=== PATIENT | female | born 1950 | race American Indian/Alaskan Native ===

== ENCOUNTER 2016-12-24 15:13 | Inpatient (IN) | payer MEDICARE ==
[2016-12-24 16:25] LABS: Basophils % (Auto) 0.7 % (0.0-1.8); Eosinophils % (Auto) 4.2 % (0.0-4.3); Hematocrit 35.4 % (30.3-42.9); Hemoglobin 11.3 gm/dl (10.1-14.3); Mean Corpuscular HGB Conc 32 % (30-34); Mean Corpuscular Hemoglobin 27 pg (28-32); Mean Corpuscular Volume 85 fl (79-97); Platelet Count 220 K/mm3 (140-440); Red Blood Count 4.19 M/mm3 (3.65-5.03); Red Cell Distribution Width 14.4 % (13.2-15.2); White Blood Count 6.2 K/mm3 (4.5-11.0)
--- NOTE | 2016-12-24 16:48 | Emergency Department Report ---
ED Shortness of Breath HPI - General Chief Complaint: Dyspnea/Respdistress Stated Complaint: COUGHING/FLUID ON LUNGS/SOB Time Seen by Provider: 12/24/16 16:30 Source: patient, family Mode of arrival: Ambulatory Limitations: No Limitations - History of Present Illness Initial Comments: Patient complains of wheezing and shortness of breath. She states that she has had occasional cough. After she does a nebulizer treatment she does see some low sputum but not prior. She's had no recent fever or chills. She is on Alogliptin, a medicine for diabetes, which she has MD Complaint: shortness of breath -: Gradual Severity: moderate Consistency: intermittent Improves With: nothing Worsens With: nothing Known History Of: COPD Context: recent URI Associated Symptoms: denies other symptoms - Related Data Home Medications Medication Instructions Recorded Confirmed Last Taken ALPRAZolam [Alprazolam] 0.5 mg PO DAILY 12/24/16 12/24/16 12/24/16 Alogliptin Benzoate [Alogliptin] 12.5 mg PO DAILY 12/24/16 12/24/16 12/24/16 Aspirin [Aspirin TAB] 325 mg PO DAILY 12/24/16 12/24/16 12/24/16 Carvedilol [Carvedilol] 3.125 mg PO DAILY 12/24/16 12/24/16 12/24/16 Carvedilol [Coreg] 3.125 mg PO DAILY 12/24/16 12/24/16 12/24/16 FLUoxetine [PROzac] 20 mg PO DAILY 12/24/16 12/24/16 12/24/16 Ferrous Gluconate [Fergon 325 MG 975 mg PO DAILY 12/24/16 12/24/16 12/24/16 tab] Furosemide [Lasix TAB] 40 mg PO DAILY 12/24/16 12/24/16 12/24/16 Insulin Glargine [Lantus VIAL] 25 units SUB-Q QHS 12/24/16 12/24/16 12/24/16 Lansoprazole [Prevacid] 15 mg PO DAILY 12/24/16 12/24/16 12/24/16 Levothyroxine [Synthroid] 100 mcg PO DAILY 12/24/16 12/24/16 12/24/16 Lisinopril [Lisinopril] 5 mg PO DAILY 12/24/16 12/24/16 12/24/16 Potassium Chloride [Klor-Con] 20 tab PO DAILY 12/24/16 12/24/16 12/24/16 Quetiapine Fumarate [Quetiapine 25 mg PO QHS 12/24/16 12/24/16 12/24/16 Fumarate] Simvastatin [Simvastatin] 40 mg PO DAILY 12/24/16 12/24/16 12/24/16 Simvastatin [Zocor TAB] 40 mg PO DAILY 12/24/16 12/24/16 12/24/16 Tramadol HCl [traMADol] 50 mg PO DAILY 12/24/16 12/24/16 12/24/16 glipiZIDE [Glipizide] 5 mg PO DAILY 12/24/16 12/24/16 12/24/16 Allergies Allergy/AdvReac Type Severity Reaction Status Date / Time No Known Allergies Allergy Unverified 04/28/14 15:10 ED Review of Systems ROS: Stated complaint: COUGHING/FLUID ON LUNGS/SOB Other details as noted in HPI Constitutional: denies: chills, fever Eyes: denies: eye pain, eye discharge, vision change ENT: denies: ear pain, throat pain Respiratory: cough, shortness of breath, wheezing Cardiovascular: denies: chest pain, palpitations Endocrine: no symptoms reported Gastrointestinal: denies: abdominal pain, nausea, diarrhea Genitourinary: denies: urgency, dysuria, discharge Musculoskeletal: denies: back pain, joint swelling, arthralgia Skin: denies: rash, lesions Neurological: denies: headache, weakness, paresthesias Psychiatric: denies: anxiety, depression Hematological/Lymphatic: denies: easy bleeding, easy bruising ED Past Medical Hx - Past Medical History Hx Hypertension: Yes Hx Congestive Heart Failure: Yes Hx Diabetes: Yes - Surgical History Hx Open Heart Surgery: Yes (Cardiac By-Pass surgery (1999), Aortic valve replacement (2005)) Additional Surgical History: Thyroidectomy - Social History Smoking Status: Never Smoker Substance Use Type: None - Medications Home Medications: Home Medications Medication Instructions Recorded Confirmed Last Taken Type ALPRAZolam [Alprazolam] 0.5 mg PO DAILY 12/24/16 12/24/16 12/24/16 History Alogliptin Benzoate [Alogliptin] 12.5 mg PO DAILY 12/24/16 12/24/16 12/24/16 History Aspirin [Aspirin TAB] 325 mg PO DAILY 12/24/16 12/24/16 12/24/16 History Carvedilol [Carvedilol] 3.125 mg PO DAILY 12/24/16 12/24/16 12/24/16 History Carvedilol [Coreg] 3.125 mg PO DAILY 12/24/16 12/24/16 12/24/16 History FLUoxetine [PROzac] 20 mg PO DAILY 12/24/16 12/24/16 12/24/16 History Ferrous Gluconate [Fergon 325 MG 975 mg PO DAILY 12/24/16 12/24/16 12/24/16 History tab] Furosemide [Lasix TAB] 40 mg PO DAILY 12/24/16 12/24/16 12/24/16 History Insulin Glargine [Lantus VIAL] 25 units SUB-Q QHS 12/24/16 12/24/16 12/24/16 History Lansoprazole [Prevacid] 15 mg PO DAILY 12/24/16 12/24/16 12/24/16 History Levothyroxine [Synthroid] 100 mcg PO DAILY 12/24/16 12/24/16 12/24/16 History Lisinopril [Lisinopril] 5 mg PO DAILY 12/24/16 12/24/16 12/24/16 History Potassium Chloride [Klor-Con] 20 tab PO DAILY 12/24/16 12/24/16 12/24/16 History Quetiapine Fumarate [Quetiapine 25 mg PO QHS 12/24/16 12/24/16 12/24/16 History Fumarate] Simvastatin [Simvastatin] 40 mg PO DAILY 12/24/16 12/24/16 12/24/16 History Simvastatin [Zocor TAB] 40 mg PO DAILY 12/24/16 12/24/16 12/24/16 History Tramadol HCl [traMADol] 50 mg PO DAILY 12/24/16 12/24/16 12/24/16 History glipiZIDE [Glipizide] 5 mg PO DAILY 12/24/16 12/24/16 12/24/16 History ED Physical Exam - General Limitations: No Limitations General appearance: alert, in no apparent distress - Head Head exam: Present: atraumatic, normocephalic - Eye Eye exam: Present: normal appearance - ENT ENT exam: Present: mucous membranes moist - Neck Neck exam: Present: normal inspection - Respiratory Respiratory exam: Present: wheezes. Absent: respiratory distress - Cardiovascular Cardiovascular Exam: Present: regular rate, normal rhythm. Absent: systolic murmur, diastolic murmur, rubs, gallop - GI/Abdominal GI/Abdominal exam: Present: soft, normal bowel sounds. Absent: distended, tenderness, guarding, rebound, rigid, organomegaly, mass - Extremities Exam Extremities exam: Present: normal inspection. Absent: tenderness, pedal edema, joint swelling, calf tenderness - Back Exam Back exam: Present: normal inspection. Absent: CVA tenderness (R), CVA tenderness (L) - Neurological Exam Neurological exam: Present: alert, oriented X3, CN II-XII intact. Absent: motor sensory deficit - Psychiatric Psychiatric exam: Present: normal affect, normal mood - Skin Skin exam: Present: warm, dry, intact, normal color. Absent: rash ED Course Vital Signs 12/24/16 12/24/16 12/24/16 15:21 17:03 17:21 Temperature 98.9 F Pulse Rate 96 H Pulse Rate [ 87 84 Posterior Bilateral Throughout] Respiratory 18 Rate Respiratory 18 18 Rate [Posterior Bilateral Throughout] Blood Pressure 123/66 Blood Pressure [Left] O2 Sat by Pulse 96 Oximetry 12/24/16 12/24/16 17:46 17:48 Temperature 98.5 F Pulse Rate 85 Pulse Rate [ Posterior Bilateral Throughout] Respiratory 16 16 Rate Respiratory Rate [Posterior Bilateral Throughout] Blood Pressure Blood Pressure 101/61 [Left] O2 Sat by Pulse 96 96 Oximetry - Reevaluation(s) Reevaluation #1: Patient was found to have mild hyper K, and increased anion gap. She did improve with breathing treatments. I have ordered an extended workup her anion gap acidosis. Patient was referred to the hospitalist, Dr. Gottlieb, for further evaluation. 12/24/16 19:08 12/24/16 19:09 ED Medical Decision Making - Lab Data Result diagrams: 12/24/16 15:41 12/24/16 15:41 Laboratory Results - last 24 hr 12/24/16 15:41 WBC 6.2 RBC 4.19 Hgb 11.3 Hct 35.4 MCV 85 MCH 27 L MCHC 32 RDW 14.4 Plt Count 220 Lymph % (Auto) 15.4 [place] % (Auto) 8.2 H Eos % (Auto) 4.2 Baso % (Auto) 0.7 Lymph # 0.9 L [place] # 0.5 Eos # 0.3 Baso # 0.0 Seg Neutrophils % 71.5 H Seg Neutrophils # 4.4 Laboratory Results - last 24 hr 12/24/16 12/24/16 15:41 15:41 WBC 6.2 RBC 4.19 Hgb 11.3 Hct 35.4 MCV 85 MCH 27 L MCHC 32 RDW 14.4 Plt Count 220 Lymph % (Auto) 15.4 [place] % (Auto) 8.2 H Eos % (Auto) 4.2 Baso % (Auto) 0.7 Lymph # 0.9 L [place] # 0.5 Eos # 0.3 Baso # 0.0 Seg Neutrophils % 71.5 H Seg Neutrophils # 4.4 Sodium 138 Potassium 5.1 H Chloride 101.6 Carbon Dioxide 18 L Anion Gap 24 BUN 26 H Creatinine 1.2 Estimated GFR 54 BUN/Creatinine Ratio 21.66 Glucose 219 H Calcium 9.2 Troponin T < 0.010 Laboratory Results - last 24 hr 12/24/16 12/24/16 15:41 15:41 WBC 6.2 RBC 4.19 Hgb 11.3 Hct 35.4 MCV 85 MCH 27 L MCHC 32 RDW 14.4 Plt Count 220 Lymph % (Auto) 15.4 [place] % (Auto) 8.2 H Eos % (Auto) 4.2 Baso % (Auto) 0.7 Lymph # 0.9 L [place] # 0.5 Eos # 0.3 Baso # 0.0 Seg Neutrophils % 71.5 H Seg Neutrophils # 4.4 Sodium 138 Potassium 5.1 H Chloride 101.6 Carbon Dioxide 18 L Anion Gap 24 BUN 26 H Creatinine 1.2 Estimated GFR 54 BUN/Creatinine Ratio 21.66 Glucose 219 H Calcium 9.2 Troponin T < 0.010 Laboratory Results - last 24 hr 12/24/16 12/24/16 15:41 15:41 WBC 6.2 RBC 4.19 Hgb 11.3 Hct 35.4 MCV 85 MCH 27 L MCHC 32 RDW 14.4 Plt Count 220 Lymph % (Auto) 15.4 [place] % (Auto) 8.2 H Eos % (Auto) 4.2 Baso % (Auto) 0.7 Lymph # 0.9 L [place] # 0.5 Eos # 0.3 Baso # 0.0 Seg Neutrophils % 71.5 H Seg Neutrophils # 4.4 Sodium 138 Potassium 5.1 H Chloride 101.6 Carbon Dioxide 18 L Anion Gap 24 BUN 26 H Creatinine 1.2 Estimated GFR 54 BUN/Creatinine Ratio 21.66 Glucose 219 H Calcium 9.2 Troponin T < 0.010 Laboratory Results - last 24 hr 12/24/16 12/24/16 15:41 15:41 WBC 6.2 RBC 4.19 Hgb 11.3 Hct 35.4 MCV 85 MCH 27 L MCHC 32 RDW 14.4 Plt Count 220 Lymph % (Auto) 15.4 [place] % (Auto) 8.2 H Eos % (Auto) 4.2 Baso % (Auto) 0.7 Lymph # 0.9 L [place] # 0.5 Eos # 0.3 Baso # 0.0 Seg Neutrophils % 71.5 H Seg Neutrophils # 4.4 Sodium 138 Potassium 5.1 H Chloride 101.6 Carbon Dioxide 18 L Anion Gap 24 BUN 26 H Creatinine 1.2 Estimated GFR 54 BUN/Creatinine Ratio 21.66 Glucose 219 H Calcium 9.2 Troponin T < 0.010 - EKG Data -: EKG Interpreted by Me EKG shows normal: sinus rhythm, axis, intervals, QRS complexes, ST-T waves Rate: normal - EKG Data Interpretation: no acute changes - Radiology Data interpreted by me: Assist x-ray shows evidence of aortic valve replacement no infiltrate no signs of decompensation Critical care attestation.: If time is entered above; I have spent that time in minutes in the direct care of this critically ill patient, excluding procedure time. ED Disposition Clinical Impression: COPD exacerbation, Metabolic acidosis, increased anion gap, Hyperkalemia Disposition: OP ADMITTED IP TO THIS HOSP Is pt being admited?: Yes Does the pt Need Aspirin: Yes Condition: Stable Instructions: Chronic Obstructive Pulmonary Disease (ED) Referrals: PRIMARY CARE, [Primary Care Provider] - 3-5 Days Time of Disposition: 19:11
[2016-12-24] MEDS ORDERED: DUONEB 0.5 MG-3 MG/3 ML SOLN IH ONE (16:52)
[2016-12-24 17:19] LABS: Anion Gap 24 mmol/L; BUN/Creatinine Ratio 21.66; Blood Urea Nitrogen 26 mg/dL (7-17); Calcium 9.2 mg/dL (8.4-10.2); Carbon Dioxide 18 mmol/L (22-30); Chloride 101.6 mmol/L (98-107); Glucose 219 mg/dL (65-100); Potassium 5.1 mmol/L (3.6-5.0); Sodium 138 mmol/L (137-145)
[2016-12-24] MEDS ORDERED: NACL 0.9% 1000 ML 1,000 ML IV ONE (18:14)
[2016-12-24 19:07] LABS: INR 1.05 (0.87-1.13)
[2016-12-24 19:08] LABS: Partial Thromboplastin Time 34.4 Sec. (24.2-36.6)
[2016-12-24] MEDS ORDERED: BABY ASPIRIN PO ONE (19:11)
[2016-12-24 19:41] LABS: Bilirubin,Urine NEG (Negative); Blood,Urine NEG (Negative); Ketones,Urine NEG (Negative); Leukocyte Esterase,Urine SM (Negative); Nitrite,Urine NEG (Negative); Urobilinogen,Urine < 2.0 mg/dL (<2.0)
--- NOTE | 2016-12-24 21:07 | Event Note ---
Date: 12/24/16 See H/p in reports Copd exacerbation Metabolic Acidosis Acute renal failure [id number] Metformin Alogliptin and Glipizide Hypothyroidism HLD CHF Hyperkalemia
[2016-12-24] MEDS ORDERED: ZOFRAN IV PRN (21:19)
[2016-12-24] MEDS ORDERED: MILK OF MAGNESIA PO PRN (21:19)
[2016-12-24] MEDS ORDERED: TYLENOL PO PRN (21:19)
[2016-12-24] MEDS ORDERED: DULCOLAX PR PRN (21:19)
[2016-12-24] MEDS ORDERED: DILAUDID IV PRN (21:19)
[2016-12-24] MEDS ORDERED: PERCOCET 5/325 PO PRN (21:19)
[2016-12-24] MEDS ORDERED: DUONEB 0.5 MG-3 MG/3 ML SOLN IH PRN (21:49)
[2016-12-24] MEDS ORDERED: PROVENTIL IH PRN (21:52)
[2016-12-24] MEDS ORDERED: NACL 0.9% 1000 ML 1,000 ML IV SCH (22:00)
[2016-12-24] MEDS ORDERED: NON-FORMULARY (Insulin Glargine 25 UNITS) SUB-Q SCH (22:00)
[2016-12-24] MEDS: DUONEB 0.5 MG-3 MG/3 ML SOLN IH SCH (22:05)
[2016-12-24] MEDS ORDERED: LEVEMIR SUB-Q SCH (23:00)
--- NOTE | 2016-12-24 23:00 | History and Physical Report ---
CHIEF COMPLAINT: 1. Increasing shortness of breath and wheezing. 2. Feeling weak. HISTORY OF PRESENT ILLNESS: A 66-year-old -[place] female with history of hypertension, type 2 diabetes, congestive heart failure, COPD, hyperlipidemia, presents with shortness of breath and wheezing. The patient also feeling weak. The patient responded to nebulizer treatment in ER. The patient has mucoid sputum. No fever, no chills. Increasing wheezing and feeling weak. No chest pain. No recent travel. Recent upper respiratory tract infection. PAST MEDICAL HISTORY: As mentioned, hypertension, congestive heart failure, type 2 diabetes, hypothyroidism, hyperlipidemia. CURRENT MEDICATIONS: Xanax 0.5 at bedtime, alogliptin 12.5 daily, Coreg 3.125 q. 12, Prozac 20 mg p.o. daily, ferrous gluconate 975 mg p.o. daily, Lasix 40 mg daily, Lantus 25 units subcutaneous at bedtime, Prilosec 50 mg p.o. daily, Synthroid 100 mcg p.o. daily, lisinopril 5 mg p.o. daily, potassium 20 mEq p.o. daily, quetiapine which is Seroquel 25 mg p.o. at bedtime, simvastatin 40 mg p.o. daily, tramadol 50 mg p.o. daily, glipizide 5 mg p.o. daily. ALLERGIES: None. PAST SURGICAL HISTORY: Open heart surgery, cardiac bypasses in 1999 and aortic valve replacement in 2005, thyroidectomy. SOCIAL HISTORY: Does not smoke. No alcohol, no recreational drugs. FAMILY HISTORY: Significant for hypertension. REVIEW OF SYSTEMS: CONSTITUTIONAL: No fever, no chills, no weight loss, no weight gain. HEENT: No sore throat. No postnasal drip. No diplopia. CARDIOVASCULAR AND RESPIRATORY: Wheezing present. Cough productive of mucoid sputum present. GASTROINTESTINAL: No nausea, no vomiting, no diarrhea. GENITOURINARY: No dysuria, no flank pain. MUSCULOSKELETAL: No joint pains. No muscle pains. CENTRAL NERVOUS SYSTEM: No syncope, no seizures. PSYCHIATRIC: No homicidal or suicidal tendencies. SKIN: No rashes. A 14-point review of systems done other than weakness and increasing readings. Review of systems is essentially negative. PHYSICAL EXAMINATION: GENERAL: Elderly female, cooperative during examination. VITAL SIGNS: Temperature is 98.9, pulse is 96, respirations 18, blood pressure 123/66. HEENT: Unremarkable. Pupils equal and reactive. NECK: Supple, no lymphadenopathy, no thyromegaly. LUNGS: Clear to auscultation and percussion. Bilateral rhonchi present. CARDIOVASCULAR: S1, S2 heard. No gallop, no murmur, no rub. Apical impulse in the left fifth intercostal space and midclavicular line. ABDOMEN: Soft and benign. No hepatosplenomegaly. No guarding, no rigidity. Hernial orifices are normal. EXTREMITIES: Good pedal pulses. No pedal edema. CENTRAL NERVOUS SYSTEM: Alert and oriented x 4, nonfocal exam. SKIN: Normal. LABORATORY DATA: White count is 6200, hemoglobin is 11.3, hematocrit is 35.4, platelet count is 220,000. Sodium is 138, potassium is 5.1, chloride is 101, bicarbonate is 18, BUN and creatinine is 26 and 1.2, glucose is 219, calcium is 9.2. Troponin is less than 0.010. EKG shows normal sinus rhythm, normal axis, normal QRS complexes, nonspecific ST-T wave changes. Chest x-ray shows ____. No infiltrate, no signs of decompensation. ASSESSMENT AND PLAN: 1. Chronic obstructive pulmonary disease exacerbation. The patient is started on DuoNebs and Levaquin and Solu-Medrol as exacerbation is mild to moderate. We will add steroids if necessary. 2. Metabolic acidosis and increased anion gap, possibly secondary to alogliptin and metformin. We will hold alogliptin for now. IV fluids for now. 3. Hypertension. Continue Coreg 3.125 q.12h. and lisinopril 5 mg p.o. daily. 4. Type 2 diabetes. We will continue glipizide 5 mg daily, Lantus 25 units subcutaneous at bedtime. As the patient is on Lantus, we will defer to hospitalist about discontinuing the glipizide. As the patient is getting ____. We will hold metformin and alogliptin. 5. Hyperlipidemia. We will hold the Zocor for the time being. 6. Gastroesophageal reflux disease. Continue Prevacid 15 mg daily. 7. Congestive heart failure. Continue with Lasix 40 mg and potassium 20 mEq daily. 8. Hyperkalemia, mild. We should correct with IV fluids. We will recheck the potassium. 9. Deep venous thrombosis prophylaxis, Lovenox 40 mg subQ daily. JOB# [id number] JAVIER/NTS
[2016-12-25] MEDS: COREG PO SCH ×2 (01:12→10:00)
[2016-12-25] MEDS: NOVOLOG SUB-Q SCH ×3 (01:13→12:30)
[2016-12-25] MEDS: ZESTRIL PO SCH ×2 (01:14→09:44)
[2016-12-25] MEDS: LEVAQUIN 750MG/150ML 750 MG/150 ML BAG IV SCH ×2 (01:33→09:39)
[2016-12-25] MEDS: PROzac PO SCH ×2 (01:36→09:41)
[2016-12-25] MEDS: LOVENOX SUB-Q SCH ×2 (01:37→09:40)
[2016-12-25] MEDS: ASPIRIN PO SCH ×2 (01:37→09:42)
[2016-12-25] MEDS: XANAX PO SCH ×2 (01:47→09:42)
[2016-12-25] MEDS: DUONEB 0.5 MG-3 MG/3 ML SOLN IH SCH ×3 (03:25→13:27)
[2016-12-25 05:46] LABS: Basophils % (Auto) 0.7 % (0.0-1.8); Eosinophils % (Auto) 5.8 % (0.0-4.3); Hematocrit 30.8 % (30.3-42.9); Mean Corpuscular HGB Conc 33 % (30-34); Mean Corpuscular Hemoglobin 27 pg (28-32); Mean Corpuscular Volume 83 fl (79-97); Platelet Count 200 K/mm3 (140-440); Red Blood Count 3.71 M/mm3 (3.65-5.03); Red Cell Distribution Width 14.5 % (13.2-15.2); White Blood Count 5.2 K/mm3 (4.5-11.0)
[2016-12-25] MEDS ORDERED: SYNTHROID PO SCH (06:00)
[2016-12-25 06:02] LABS: Alanine Aminotransferase 12 units/L (7-56); Albumin 3.5 g/dL (3.9-5); Albumin/Globulin Ratio 1.1 %; Alkaline Phosphatase 88 units/L (35-129); Anion Gap 17 mmol/L; Bilirubin,Total < 0.20 mg/dL (0.1-1.2); Blood Urea Nitrogen 21 mg/dL (7-17); Calcium 8.6 mg/dL (8.4-10.2); Carbon Dioxide 23 mmol/L (22-30); Chloride 103.1 mmol/L (98-107); Glucose 164 mg/dL (65-100); Potassium 4.3 mmol/L (3.6-5.0); Sodium 139 mmol/L (137-145); Total Protein 6.8 g/dL (6.3-8.2)
[2016-12-25] MEDS ORDERED: GLUCOTROL PO SCH (08:00)
--- NOTE | 2016-12-25 09:14 | XRay Report ---
Chest 2 views: History: Shortness of breath. Findings: Borderline cardiomegaly the trachea is midline. No consolidation, pneumothorax or pleural effusion. Impression: No acute cardiopulmonary findings.
--- NOTE | 2016-12-25 09:42 | Progress Note ---
Assessment and Plan Assessment and plan: 66F with pmh of htn, DM, CHF, COPD who presents with sob and wheezing 1. COPD exacerbation nebs, steroids, abx 2. chronic systolic CHF Continue home meds, optimize medications, obtain echo 3. DM Continue levemir, continue SSI 4. HTN optimize meds History Interval history: Continues to complain of shortness of breath, wheezing and dry cough Hospitalist Physical - Physical exam Narrative exam: General: Patient appears well in no distress HEENT: MMM, EOMI cardiac: S1-S2 heard lungs: Wheezing throughout abdomen: soft, nontender, nondistended bowel sounds positive extremities: no edema clubbing or cyanosis Skin: no rash or lesion Neuro: no focal deficit Psych: appropriate behavior and mood, cognition intact - Constitutional Vitals: Temp Pulse Resp BP Pulse Ox 99.9 F H 90 20 110/63 98 12/25/16 08:43 12/25/16 08:43 12/25/16 08:43 12/25/16 08:43 12/25/16 08:43 Results - Labs CBC & Chem 7: 12/25/16 04:56 12/25/16 04:56 Labs: Laboratory Last Values WBC 5.2 K/mm3 (4.5-11.0) 12/25/16 04:56 RBC 3.71 M/mm3 (3.65-5.03) 12/25/16 04:56 Hgb 10.0 gm/dl (10.1-14.3) L 12/25/16 04:56 Hct 30.8 % (30.3-42.9) 12/25/16 04:56 MCV 83 fl (79-97) 12/25/16 04:56 MCH 27 pg (28-32) L 12/25/16 04:56 MCHC 33 % (30-34) 12/25/16 04:56 RDW 14.5 % (13.2-15.2) 12/25/16 04:56 Plt Count 200 K/mm3 (140-440) 12/25/16 04:56 Lymph % (Auto) 27.3 % (13.4-35.0) 12/25/16 04:56 [place] % (Auto) 13.1 % (0.0-7.3) H 12/25/16 04:56 Eos % (Auto) 5.8 % (0.0-4.3) H 12/25/16 04:56 Baso % (Auto) 0.7 % (0.0-1.8) 12/25/16 04:56 Lymph # 1.4 K/mm3 (1.2-5.4) 12/25/16 04:56 [place] # 0.7 K/mm3 (0.0-0.8) 12/25/16 04:56 Eos # 0.3 K/mm3 (0.0-0.4) 12/25/16 04:56 Baso # 0.0 K/mm3 (0.0-0.1) 12/25/16 04:56 Seg Neutrophils % 53.1 % (40.0-70.0) 12/25/16 04:56 Seg Neutrophils # 2.8 K/mm3 (1.8-7.7) 12/25/16 04:56 PT 13.6 Sec. (12.2-14.9) 12/24/16 18:26 INR 1.05 (0.87-1.13) 12/24/16 18:26 APTT 34.4 Sec. (24.2-36.6) 12/24/16 18:26 Sodium 139 mmol/L (137-145) 12/25/16 04:56 Potassium 4.3 mmol/L (3.6-5.0) 12/25/16 04:56 Chloride 103.1 mmol/L (98-107) 12/25/16 04:56 Carbon Dioxide 23 mmol/L (22-30) 12/25/16 04:56 Anion Gap 17 mmol/L 12/25/16 04:56 BUN 21 mg/dL (7-17) H 12/25/16 04:56 Creatinine 1.2 mg/dL (0.7-1.2) 12/25/16 04:56 Estimated GFR 54 ml/min 12/25/16 04:56 BUN/Creatinine Ratio 17.50 % 12/25/16 04:56 Glucose 164 mg/dL (65-100) H 12/25/16 04:56 Hemoglobin A1c 7.6 % (4-6) H 12/24/16 15:41 Lactic Acid 0.80 mmol/L (0.7-2.0) 12/24/16 18:26 Calcium 8.6 mg/dL (8.4-10.2) 12/25/16 04:56 Total Bilirubin < 0.20 mg/dL (0.1-1.2) 12/25/16 04:56 AST 17 units/L (5-40) 12/25/16 04:56 ALT 12 units/L (7-56) 12/25/16 04:56 Alkaline Phosphatase 88 units/L (35-129) 12/25/16 04:56 Troponin T < 0.010 ng/mL (0.00-0.029) 12/24/16 15:41 NT-Pro-B Natriuret Pep 366.7 pg/mL (0-900) 12/24/16 18:26 Total Protein 6.8 g/dL (6.3-8.2) 12/25/16 04:56 Albumin 3.5 g/dL (3.9-5) L 12/25/16 04:56 Albumin/Globulin Ratio 1.1 % 12/25/16 04:56 Urine Color Yellow (Yellow) 12/24/16 Unknown Urine Turbidity Clear (Clear) 12/24/16 Unknown Urine pH 5.0 (5.0-7.0) 12/24/16 Unknown Ur Specific [place] 1.023 (1.003-1.030) 12/24/16 Unknown Urine Protein 30 mg/dl mg/dL (Negative) 12/24/16 Unknown Urine Glucose (UA) Neg mg/dL (Negative) 12/24/16 Unknown Urine Ketones Neg mg/dL (Negative) 12/24/16 Unknown Urine Blood Neg (Negative) 12/24/16 Unknown Urine Nitrite Neg (Negative) 12/24/16 Unknown Urine Bilirubin Neg (Negative) 12/24/16 Unknown Urine Urobilinogen < 2.0 mg/dL (<2.0) 12/24/16 Unknown Ur Leukocyte Esterase Sm (Negative) 12/24/16 Unknown Urine WBC (Auto) 4.0 /HPF (0.0-6.0) 12/24/16 Unknown Urine RBC (Auto) 1.0 /HPF (0.0-6.0) 12/24/16 Unknown U Epithel Cells (Auto) 1.0 /HPF (0-13.0) 12/24/16 Unknown
[2016-12-25] MEDS ORDERED: PROTONIX PO SCH (10:00)
[2016-12-25] MEDS ORDERED: FERGON PO SCH ×2 (10:00→14:00)
[2016-12-25] MEDS ORDERED: POTASSIUM CHLORIDE PO SCH (10:00)
[2016-12-25] MEDS ORDERED: LASIX PO SCH (10:00)
[2016-12-25] MEDS ORDERED: ZOCOR PO SCH (10:00)
--- NOTE | 2016-12-25 12:34 | Discharge Summary ---
Providers - Providers Date of Admission: 12/24/16 21:19 Attending physician: EL ACOSTA MD Primary care physician: NILS OQUENDO MD Hospitalization Condition: Stable Hospital course: 66F with pmh of htn, DM, CHF, COPD who presents with sob and wheezing and sinus congestion. She was found to have COPD exacerbation. She was treated with nebulizer steroids and antibiotics. For nasal congestion/sinusitis she was treated with steroid nasal spray and saline nasal spray. Patient clinically improved and was only short of breath. She admitted that she had poor compliance with CPAP at bedtime. She was counseled about improves compliance, she verbalized understanding. Discharge diagnoses 1. COPD exacerbation 2. chronic systolic CHF 3. DM 4. HTN 5. Acute sinusitis Disposition: DISCHARGED TO HOME OR SELFCARE Time spent for discharge: 35 minutes Core Measure Documentation - Palliative Care Palliative Care/ Comfort Measures: Not Applicable - Core Measures Any of the following diagnoses?: none Exam - Constitutional Vitals: Temp Pulse Resp BP Pulse Ox 99.9 F H 90 20 110/63 98 12/25/16 08:43 12/25/16 09:44 12/25/16 08:43 12/25/16 09:44 12/25/16 08:43 General appearance: Present: no acute distress, well-nourished - EENT Eyes: Present: PERRL ENT: hearing intact, clear oral mucosa - Neck Neck: Present: supple, normal ROM - Respiratory Respiratory effort: normal Respiratory: bilateral: CTA - Cardiovascular Heart Sounds: Present: S1 & S2. Absent: rub, click - Extremities Extremities: pulses symmetrical, No edema Peripheral Pulses: within normal limits - Abdominal General gastrointestinal: Present: soft, non-tender, non-distended, normal bowel sounds Female genitourinary: Present: normal - Integumentary Integumentary: Present: clear, warm, dry - Musculoskeletal Musculoskeletal: gait normal, strength equal bilaterally - Psychiatric Psychiatric: appropriate mood/affect, intact judgment & insight - Neurologic Neurologic: CNII-XII intact, moves all extremities Plan Follow up with: PRIMARY CARE, [Primary Care Provider] - 3-5 Days Prescriptions: Azithromycin [Zithromax Z-WANDA] 0 mg PO DAILY #1 pack Fluticasone [Flonase] 1 spray NS QDAY #1 bottle predniSONE [Deltasone] 20 mg PO QDAY #5 tab Sodium Chloride [[place]] 67.5 ml NS QID #1 spray
[2016-12-25 15:25] VITALS: BP 106/63
== END 2016-12-25 15:10 | disposition home or self-care (01) | DRG 191 ==
LOC: ED 15:13 → 3A 21:19
PROVIDERS: ADMIT Internal Medicine; ATTEND Internal Medicine
DX: J44.1 Chronic obstructive pulmonary disease with (acute) exacerbation (principal); E87.2 Acidosis; I50.22 Chronic systolic (congestive) heart failure; N17.9 Acute kidney failure, unspecified; E87.5 Hyperkalemia; I11.0 Hypertensive heart disease with heart failure; E11.9 Type 2 diabetes mellitus without complications; J01.90 Acute sinusitis, unspecified; E89.0 Postprocedural hypothyroidism; E78.5 Hyperlipidemia, unspecified; K21.9 Gastro-esophageal reflux disease without esophagitis; Z95.1 Presence of aortocoronary bypass graft; Z95.2 Presence of prosthetic heart valve; Z82.49 Family history of ischemic heart disease and other diseases of the circulatory system
CPT/HCPCS: 36415; 71020; 80048; 80053; 81001; 82140; 82962; 83036; 83880; 84484; 85025; 85610; 85730; 87040; 87086; 93005; 93010; 94640; J1650; J1815; J1818; J1956; J2920; J7030

== ENCOUNTER 2017-02-15 10:32 | Outpatient (CLI) | payer MEDICARE ==
--- NOTE | 2017-02-15 13:18 | Mammography Report ---
Bilateral digital screening mammogram with CAD. History: Cancer screening. Comparison study is dated January 01, 2015. Findings: The breasts are fibrofatty, and the overall parenchymal pattern is stable. The left breast is smaller than the right due to previous surgery; this finding is unchanged. No masses or other suspicious findings are seen. Impression: Stable benign findings. BI-RADS code: 2. Recommendation: Annual screening.
== END 2017-02-15 10:33 | disposition home or self-care (01) ==
LOC: MAMMO 10:32
PROVIDERS: ATTEND Family Medicine
DX: Z12.39 Encounter for other screening for malignant neoplasm of breast (principal); I11.0 Hypertensive heart disease with heart failure; I50.9 Heart failure, unspecified; I25.10 Atherosclerotic heart disease of native coronary artery without angina pectoris; J44.9 Chronic obstructive pulmonary disease, unspecified; E03.8 Other specified hypothyroidism; Z87.891 Personal history of nicotine dependence
CPT/HCPCS: 77067; G0202

== ENCOUNTER 2017-09-21 19:53 | Emergency (ER) | payer MEDICARE ==
--- NOTE | 2017-09-21 23:39 | XRay Report ---
FINAL REPORT PROCEDURE: XR CHEST 1V AP TECHNIQUE: Chest radiograph anteroposterior view. CPT 24613 HISTORY: chest pain COMPARISON: No prior studies are available for comparison. FINDINGS: Heart: Normal. Mediastinum/Vessels: Normal. Lungs/Pleural space: Lungs are well-expanded. There are no infiltrates, effusions or pneumothoraces.. Bony thorax: No acute osseous abnormality. Life support devices: None. IMPRESSION: No acute cardiopulmonary abnormality.
[2017-09-21 23:41] LABS: Basophils % (Auto) 0.5 % (0.0-1.8); Eosinophils # (Auto) 0.2 K/mm3 (0.0-0.4); Eosinophils % (Auto) 1.8 % (0.0-4.3); Hematocrit 28.9 % (30.3-42.9); Hemoglobin 9.2 gm/dl (10.1-14.3); Lymphocytes # (Auto) 1.7 K/mm3 (1.2-5.4); Lymphocytes % (Auto) 18.3 % (13.4-35.0); Mean Corpuscular HGB Conc 32 % (30-34); Mean Corpuscular Volume 80 fl (79-97); Monocytes # (Auto) 0.5 K/mm3 (0.0-0.8); Platelet Count 271 K/mm3 (140-440); Red Blood Count 3.62 M/mm3 (3.65-5.03); Red Cell Distribution Width 15.8 % (13.2-15.2)
[2017-09-21 23:50] LABS: Mean Corpuscular Hemoglobin 25 pg (28-32)
[2017-09-21 23:56] LABS: Calcium 9.3 mg/dL (8.4-10.2)
[2017-09-22] MEDS ORDERED: DELTASONE PO ONE (01:19)
[2017-09-22] MEDS ORDERED: DUONEB *Not for PRN Use IH ONE (01:19)
--- NOTE | 2017-09-22 01:19 | Emergency Department Report ---
HPI - General Chief Complaint: Dyspnea/Respdistress Time Seen by Provider: 09/21/17 23:11 - HPI HPI: The patient is a 66-year-old female with a history of COPD and CHF, who presents for evaluation of dyspnea. The patient reports dyspnea for the past 2 days, moderate in severity, constant, exacerbated with exertion, and improved with rest and sitting up. The patient denies fever, trauma to the chest, cough , syncope, hemoptysis, unilateral leg swelling, recent immobilization, history of DVT or PE, recent cancer, history of familial coagulation disorder. ED Past Medical Hx - Past Medical History Hx Hypertension: Yes Hx Congestive Heart Failure: Yes Hx Diabetes: Yes Hx Arthritis: Yes Hx COPD: Yes - Surgical History Hx Open Heart Surgery: Yes (Cardiac By-Pass surgery (1999), Aortic valve replacement (2005)) Additional Surgical History: Thyroidectomy - Social History Smoking Status: Never Smoker Substance Use Type: None - Medications Home Medications: Home Medications Medication Instructions Recorded Confirmed Last Taken Type ALPRAZolam [Alprazolam] 0.5 mg PO DAILY 12/24/16 12/24/16 12/24/16 History Alogliptin Benzoate [Alogliptin] 12.5 mg PO DAILY 12/24/16 12/24/16 12/24/16 History Aspirin [Aspirin TAB] 325 mg PO DAILY 12/24/16 12/24/16 12/24/16 History Carvedilol [Coreg] 3.125 mg PO DAILY 12/24/16 12/24/16 12/24/16 History FLUoxetine [PROzac] 20 mg PO DAILY 12/24/16 12/24/16 12/24/16 History Ferrous Gluconate [Fergon 325 MG 975 mg PO DAILY 12/24/16 12/24/16 12/24/16 History tab] Furosemide [Lasix TAB] 40 mg PO DAILY 12/24/16 12/24/16 12/24/16 History Insulin Glargine [Lantus VIAL] 25 units SUB-Q QHS 12/24/16 12/24/16 12/24/16 History Lansoprazole [Prevacid] 15 mg PO DAILY 12/24/16 12/24/16 12/24/16 History Levothyroxine [Synthroid] 100 mcg PO DAILY 12/24/16 12/24/16 12/24/16 History Lisinopril 5 mg PO DAILY 12/24/16 12/24/16 12/24/16 History Potassium Chloride [Klor-Con] 20 tab PO DAILY 12/24/16 12/24/16 12/24/16 History Quetiapine Fumarate 25 mg PO QHS 12/24/16 12/24/16 12/24/16 History Simvastatin 40 mg PO DAILY 12/24/16 12/24/16 12/24/16 History Simvastatin [Zocor TAB] 40 mg PO DAILY 12/24/16 12/24/16 12/24/16 History Tramadol HCl [traMADol] 50 mg PO DAILY 12/24/16 12/24/16 12/24/16 History glipiZIDE [Glipizide] 5 mg PO DAILY 12/24/16 12/24/16 12/24/16 History Fluticasone [Flonase] 1 spray NS QDAY #1 bottle 12/25/16 Unknown Rx Sodium Chloride [[place]] 67.5 ml NS QID #1 spray 12/25/16 Unknown Rx predniSONE [Deltasone] 20 mg PO QDAY #5 tab 12/25/16 Unknown Rx ALBUTEROL Inhaler [ProAir HFA 2 puff IH QID PRN #1 inhalation 09/22/17 Unknown Rx Inhaler] predniSONE [Deltasone] 20 mg PO QDAY #3 tab 09/22/17 Unknown Rx ED Review of Systems ROS: Stated complaint: FLUIDS ON LUNGS Other details as noted in HPI Constitutional: denies: fever ENT: denies: throat or neck pain Respiratory: denies: cough reports shortness of breath Cardiovascular: denies: chest pain Endocrine: denies unexplained weight loss or gain Gastrointestinal: denies: abdominal pain, nausea Genitourinary: denies: dysuria Musculoskeletal: denies: leg swelling Skin: denies: rash Neurological: denies: headache Hematological/Lymphatic: denies: easy bleeding or easy bruising Psych: denies sadness or hopelessness Physical Exam - Physical Exam Vital Signs: Vital Signs 09/21/17 21:02 Temperature 98.4 F Pulse Rate 106 H Respiratory 20 Rate Blood Pressure 174/77 O2 Sat by Pulse 95 Oximetry Physical Exam: General: well-nourished, well-developed, no acute distress Head: Normocephalic, atraumatic Eyes: normal sclera ENT: Mucous membranes are pale and dry Neck: No neck stiffness, no cervical adenopathy Respiratory: Mildly diminished breath sounds and wheezing present to apical lung benites bilaterally Cardio: S1 and S2 present, no murmurs, rubs, gallops, capillary refill is delayed Abdomen: Normoactive bowel sounds, soft abdomen, no rigidity, no guarding or rebound tenderness Chest WALL/Back: No tenderness to palpation of the chest wall, no CVA tenderness with percussion Musc: No pitting edema Skin: No rash Neuro: no facial drooping, normal speech Psych: Normal affect ED Course Vital Signs 09/21/17 21:02 Temperature 98.4 F Pulse Rate 106 H Respiratory 20 Rate Blood Pressure 174/77 O2 Sat by Pulse 95 Oximetry ED Medical Decision Making - Lab Data Result diagrams: 09/21/17 23:30 09/21/17 23:30 - Medical Decision Making The patient was seen and examined by myself. The patient is placed on a cardiac surgeon and continuous pulse ox. On initial evaluation, the patient was found to be in no distress. EKG was negative for findings suggestive of acute cardiac infarct. Labs and imaging are obtained. Chest x-ray is negative for pneumothorax, focal consolidation, pulmonary vascular congestion, pleural effusion, or other obvious acute cardiopulmonary disease process. The patient is given a breathing treatment and a tablet of prednisone for treatment of COPD. Lab results were non-concerning including levels of troponin, WBC, hemoglobin, hematocrit, electrolytes, renal function. The patient was reevaluated and reported that their symptoms were markedly improved. As the patient has a well's score less than 2, the patient is at low risk of ACS or pulmonary emboli etiology of their symptoms. The patient is stable for discharge with outpatient follow-up. The patient is given follow-up and return instructions. The patient expressed understanding and agreed with the plan. The patient is discharged in stable condition. Critical care attestation.: If time is entered above; I have spent that time in minutes in the direct care of this critically ill patient, excluding procedure time. ED Disposition Clinical Impression: COPD with acute exacerbation Disposition: DC-01 TO HOME OR SELFCARE Is pt being admited?: No Does the pt Need Aspirin: No Condition: Stable Instructions: Chronic Obstructive Pulmonary Disease (ED) Prescriptions: ALBUTEROL Inhaler [ProAir HFA Inhaler] 2 puff IH QID PRN #1 inhalation PRN Reason: Shortness Of Breath predniSONE [Deltasone] 20 mg PO QDAY #3 tab Referrals: PRIMARY CARE, [Primary Care Provider] - 3-5 Days Time of Disposition: 01:18
[2017-09-22 03:44] VITALS: BP 149/75
== END 2017-09-22 03:15 | disposition home or self-care (01) ==
LOC: ED 19:53
DX: J44.1 Chronic obstructive pulmonary disease with (acute) exacerbation (principal); I11.0 Hypertensive heart disease with heart failure; I50.9 Heart failure, unspecified; E11.9 Type 2 diabetes mellitus without complications; M19.90 Unspecified osteoarthritis, unspecified site; Z79.82 Long term (current) use of aspirin; Z79.4 Long term (current) use of insulin
CPT/HCPCS: 36415; 71045; 80048; 83880; 85025; 99284; J7512

== ENCOUNTER 2018-09-23 13:21 | Emergency (ER) | payer MEDICARE ==
[2018-09-23 13:40] VITALS: BP 118/61
--- NOTE | 2018-09-23 13:41 | Emergency Department Report ---
Chief Complaint: Back Pain/Injury Stated Complaint: BACK PAIN Time Seen by Provider: 09/23/18 13:37 - HPI History of Present Illness: pt c/o upper back pain x3 weeks no radiation pain worse with movements does physical activity at health [facility] with weights no fall or injury no CP, SOB, N/V hx of CABG, stents, valve replacement, DM former smoker MSE complete MSE screening note: Focused history and physical exam performed. Due to findings the following was ordered: ED Disposition for MSE Condition: Stable
[2018-09-23] MEDS ORDERED: TYLENOL PO ONE (15:16)
--- NOTE | 2018-09-23 15:34 | XRay Report ---
PROCEDURE: XR CHEST ROUTINE 2V TECHNIQUE: Chest, 2 views HISTORY: uppr back pain COMPARISON: None FINDINGS: There is mild cardiomegaly. The patient is status post median sternotomy. Pulmonary vasculature is mildly prominent.. Mediastinal contours are normal. Lungs are clear. There is no pleural effusion seen. There is no pneumothorax seen. IMPRESSION: Mild cardiomegaly with mild pulmonary vascular prominence. This document is electronically signed by Karis Washington MD., September 23 2018 03:32:09 PM ET
--- NOTE | 2018-09-23 15:55 | Emergency Department Report ---
ED General Adult HPI - General Chief complaint: Back Pain/Injury Stated complaint: BACK PAIN Time Seen by Provider: 09/23/18 13:37 Source: patient, RN notes reviewed, old records reviewed Mode of arrival: Ambulatory Limitations: No Limitations - History of Present Illness Initial comments: This is a 67-year-old female. The patient is not known to this provider previously Past medical history includes diabetes, renal insufficiency, COPD, congestive heart failure. Her primary care doctor is Dr. Pablo. The patient presents to the emergency room with a complaint of nontraumatic parathoracic muscular back pain for 3 weeks. The pain is aching, constant, worsens with palpation and decreases with rest. It does not radiate anywhere. The patient denies DVT, pulmonary embolus risk factors. She reports that she is working out, and recently increased her weights and intensity. She denies headache, neck pain, chest pain, new or different shortness of breath, lower abdominal pain, focal extremity weakness, numbness, ataxia. -: Gradual Location: back Radiation: non-radiation Severity scale (0 -10): 9 Consistency: constant Improves with: rest Worsens with: movement Associated Symptoms: denies other symptoms - Related Data Home Medications Medication Instructions Recorded Confirmed Last Taken ALPRAZolam [Alprazolam] 0.5 mg PO DAILY 12/24/16 12/24/16 12/24/16 Alogliptin Benzoate [Alogliptin] 12.5 mg PO DAILY 12/24/16 12/24/16 12/24/16 Aspirin [Aspirin TAB] 325 mg PO DAILY 12/24/16 12/24/16 12/24/16 Carvedilol [Coreg] 3.125 mg PO DAILY 12/24/16 12/24/16 12/24/16 FLUoxetine [PROzac] 20 mg PO DAILY 12/24/16 12/24/16 12/24/16 Ferrous Gluconate [Fergon 325 MG 975 mg PO DAILY 12/24/16 12/24/16 12/24/16 tab] Furosemide [Lasix TAB] 40 mg PO DAILY 12/24/16 12/24/16 12/24/16 Insulin Glargine [Lantus VIAL] 25 units SUB-Q QHS 12/24/16 12/24/16 12/24/16 Lansoprazole [Prevacid] 15 mg PO DAILY 12/24/16 12/24/16 12/24/16 Levothyroxine [Synthroid] 100 mcg PO DAILY 12/24/16 12/24/16 12/24/16 Lisinopril 5 mg PO DAILY 12/24/16 12/24/16 12/24/16 Potassium Chloride [Klor-Con] 20 tab PO DAILY 12/24/16 12/24/16 12/24/16 Quetiapine Fumarate 25 mg PO QHS 12/24/16 12/24/16 12/24/16 Simvastatin 40 mg PO DAILY 12/24/16 12/24/16 12/24/16 Simvastatin [Zocor TAB] 40 mg PO DAILY 12/24/16 12/24/16 12/24/16 Tramadol HCl [traMADol] 50 mg PO DAILY 12/24/16 12/24/16 12/24/16 glipiZIDE [Glipizide] 5 mg PO DAILY 12/24/16 12/24/16 12/24/16 Previous Rx's Medication Instructions Recorded Last Taken Type Fluticasone [Flonase] 1 spray NS QDAY #1 bottle 12/25/16 Unknown Rx Sodium Chloride [[place]] 67.5 ml NS QID #1 spray 12/25/16 Unknown Rx predniSONE [Deltasone] 20 mg PO QDAY #5 tab 12/25/16 Unknown Rx ALBUTEROL Inhaler (OR & NICU) 2 puff IH QID PRN #1 inhalation 09/22/17 Unknown Rx [ProAir HFA Inhaler] predniSONE [Deltasone] 20 mg PO QDAY #3 tab 09/22/17 Unknown Rx Acetaminophen [Tylenol Arthritis] 650 mg PO Q6HR PRN #30 tablet.er 09/23/18 Unknown Rx Allergies Allergy/AdvReac Type Severity Reaction Status Date / Time No Known Allergies Allergy Verified 09/21/17 21:06 ED Review of Systems ROS: Stated complaint: BACK PAIN Other details as noted in HPI Eyes: denies: vision change ENT: denies: epistaxis Respiratory: denies: cough, shortness of breath Cardiovascular: denies: chest pain Gastrointestinal: denies: abdominal pain Genitourinary: denies: dysuria Musculoskeletal: back pain Skin: denies: lesions Neurological: denies: weakness ED Past Medical Hx - Past Medical History Previous Medical History?: Yes Hx Hypertension: Yes Hx Congestive Heart Failure: Yes Hx Diabetes: Yes Hx Arthritis: Yes Hx COPD: Yes - Surgical History Past Surgical History?: Yes Hx Coronary Stent: Yes Hx Open Heart Surgery: Yes (Cardiac By-Pass surgery (1999), Aortic valve replacement (2005)) Additional Surgical History: Thyroidectomy - Social History Smoking Status: Former Smoker Substance Use Type: Alcohol, Prescribed - Medications Home Medications: Home Medications Medication Instructions Recorded Confirmed Last Taken Type ALPRAZolam [Alprazolam] 0.5 mg PO DAILY 12/24/16 12/24/16 12/24/16 History Alogliptin Benzoate [Alogliptin] 12.5 mg PO DAILY 12/24/16 12/24/16 12/24/16 History Aspirin [Aspirin TAB] 325 mg PO DAILY 12/24/16 12/24/16 12/24/16 History Carvedilol [Coreg] 3.125 mg PO DAILY 12/24/16 12/24/16 12/24/16 History FLUoxetine [PROzac] 20 mg PO DAILY 12/24/16 12/24/16 12/24/16 History Ferrous Gluconate [Fergon 325 MG 975 mg PO DAILY 12/24/16 12/24/16 12/24/16 History tab] Furosemide [Lasix TAB] 40 mg PO DAILY 12/24/16 12/24/16 12/24/16 History Insulin Glargine [Lantus VIAL] 25 units SUB-Q QHS 12/24/16 12/24/16 12/24/16 History Lansoprazole [Prevacid] 15 mg PO DAILY 12/24/16 12/24/16 12/24/16 History Levothyroxine [Synthroid] 100 mcg PO DAILY 12/24/16 12/24/16 12/24/16 History Lisinopril 5 mg PO DAILY 12/24/16 12/24/16 12/24/16 History Potassium Chloride [Klor-Con] 20 tab PO DAILY 12/24/16 12/24/16 12/24/16 History Quetiapine Fumarate 25 mg PO QHS 12/24/16 12/24/16 12/24/16 History Simvastatin 40 mg PO DAILY 12/24/16 12/24/16 12/24/16 History Simvastatin [Zocor TAB] 40 mg PO DAILY 12/24/16 12/24/1612/24/17 History Tramadol HCl [traMADol] 50 mg PO DAILY 12/24/16 12/24/16 12/24/16 History glipiZIDE [Glipizide] 5 mg PO DAILY 12/24/16 12/24/16 12/24/16 History Fluticasone [Flonase] 1 spray NS QDAY #1 bottle 12/25/16 Unknown Rx Sodium Chloride [[place]] 67.5 ml NS QID #1 spray 12/25/16 Unknown Rx predniSONE [Deltasone] 20 mg PO QDAY #5 tab 12/25/16 Unknown Rx ALBUTEROL Inhaler (OR & NICU) 2 puff IH QID PRN #1 inhalation 09/22/17 Unknown Rx [ProAir HFA Inhaler] predniSONE [Deltasone] 20 mg PO QDAY #3 tab 09/22/17 Unknown Rx Acetaminophen [Tylenol Arthritis] 650 mg PO Q6HR PRN #30 tablet.er 09/23/18 Unknown Rx ED Physical Exam - General Limitations: No Limitations General appearance: alert, in no apparent distress - Head Head exam: Present: atraumatic, normocephalic - Eye Eye exam: Present: normal appearance, EOMI. Absent: nystagmus - ENT ENT exam: Present: normal exam, normal orophraynx, mucous membranes moist, normal external ear exam - Neck Neck exam: Present: normal inspection, full ROM. Absent: tenderness, meningismus - Respiratory Respiratory exam: Present: normal lung sounds bilaterally. Absent: respiratory distress - Cardiovascular Cardiovascular Exam: Present: regular rate, normal rhythm, systolic murmur, other (2/6 systolic murmur, heard best at the right and left second intercostal spaces, consistent with history of porcine aortic valve replacement). Absent: bradycardia, tachycardia, irregular rhythm, diastolic murmur, rubs, gallop - GI/Abdominal GI/Abdominal exam: Present: soft. Absent: distended, tenderness, guarding, rebound, rigid, pulsatile mass - Extremities Exam Extremities exam: Present: normal inspection, full ROM, other (2+ pulses noted in the bilateral upper, lower extremities. Compartments soft. No long bony tenderness. The pelvis is stable.). Absent: pedal edema, joint swelling, calf tenderness - Back Exam Back exam: Present: normal inspection, full ROM, paraspinal tenderness. Absent: tenderness, CVA tenderness (R), CVA tenderness (L), vertebral tenderness - Neurological Exam Neurological exam: Present: alert, oriented X3, CN II-XII intact, normal gait, other (Extraocular movements intact. Tongue midline. No facial droop. Facial sensation intact to light touch in the V1, V2, V3 distribution bilaterally. 5 and 5 strength in 4 extremities.. Sensation is intact to light touch in 4 extremities.). Absent: motor sensory deficit - Psychiatric Psychiatric exam: Present: normal affect, normal mood - Skin Skin exam: Present: warm, dry, intact, normal color. Absent: rash ED Course Vital Signs 09/23/18 13:37 Temperature 98.2 F Pulse Rate 97 H Respiratory 18 Rate Blood Pressure 118/61 O2 Sat by Pulse 98 Oximetry ED Medical Decision Making - Lab Data Vital Signs 09/23/18 13:37 Temperature 98.2 F Pulse Rate 97 H Respiratory 18 Rate Blood Pressure 118/61 O2 Sat by Pulse 98 Oximetry - Radiology Data Radiology results: image reviewed interpreted by me: X-ray of the chest is negative for acute disease. Changes consistent with history of sternotomy and aortic valve replacement noted. - Medical Decision Making Differential diagnosis, including but not limited to: Muscular back pain Assessment and plan: 67-year-old female with reproducible muscular back pain, in the context of changing out her physical fitness workout routine. The patient is afebrile with reassuring vital signs, and is in no acute distress. Has a history of renal insufficiency. Suitable for acetaminophen, counseled to follow up with outpatient physical therapy, primary care, and this provided discussed complementary and alternative therapies, such as massage therapy, acupuncture. Patient verbalizes understanding. The patient does not appear to have an emergent medical condition at this time, and she is medically suitable for discharge. Critical care attestation.: If time is entered above; I have spent that time in minutes in the direct care of this critically ill patient, excluding procedure time. ED Disposition Clinical Impression: Muscle strain of upper back Disposition: -01 TO HOME OR SELFCARE Is pt being admited?: No Does the pt Need Aspirin: No Condition: Stable Additional Instructions: Rest, and participate in physical activities as tolerated. Avoid straining and excessively heavy lifting. Follow-up with your primary care doctor within the next 4-6 weeks. Take the pain medication as needed f or directed. Patient may consider alternative therapies, such as massage therapy, application of ice packs, alternating with heat, as often as as needed, hot tub, emergent therapy, or acupuncture. The patient can look up these therapies on her own, using an online search, and may contact her private insurance company at her discretion and leisure to see if any of these aforementioned therapies are covered under her current plan. Please return to the emergency room right away with new, worsening or different symptoms. Referrals: MADDI PABLO MD [Referring] - as needed
== END 2018-09-23 16:01 | disposition home or self-care (01) ==
LOC: ED 13:21
DX: S29.012A Strain of muscle and tendon of back wall of thorax, initial encounter (principal); I11.0 Hypertensive heart disease with heart failure; I50.9 Heart failure, unspecified; E11.9 Type 2 diabetes mellitus without complications; M19.90 Unspecified osteoarthritis, unspecified site; J44.9 Chronic obstructive pulmonary disease, unspecified; Z87.891 Personal history of nicotine dependence
CPT/HCPCS: 71046

== ENCOUNTER 2019-01-09 06:35 | Day surgery (SDC) | payer MEDICARE ==
[2019-01-09 07:31] LABS: Basophils # (Auto) 0.1 K/mm3 (0.0-0.1); Basophils % (Auto) 2.1 % (0.0-1.8); Eosinophils # (Auto) 0.7 K/mm3 (0.0-0.4); Eosinophils % (Auto) 10.4 % (0.0-4.3); Hematocrit 30.7 % (30.3-42.9); Hemoglobin 9.9 gm/dl (10.1-14.3); Lymphocytes # (Auto) 1.6 K/mm3 (1.2-5.4); Lymphocytes % (Auto) 23.2 % (13.4-35.0); Mean Corpuscular HGB Conc 32 % (30-34); Mean Corpuscular Volume 87 fl (79-97); Monocytes # (Auto) 0.6 K/mm3 (0.0-0.8); Platelet Count 289 K/mm3 (140-440); Red Blood Count 3.51 M/mm3 (3.65-5.03); Red Cell Distribution Width 15.6 % (13.2-15.2)
[2019-01-09 07:41] LABS: INR 0.95 (0.87-1.13)
[2019-01-09 07:42] LABS: Partial Thromboplastin Time 34.1 Sec. (24.2-36.6)
--- NOTE | 2019-01-09 07:43 | Anesthesia Day of Surgery ---
Anesthesia Day of Surgery - Day of Surgery Patient Examined: Yes Patient H&P Reviewed: Yes Patient is NPO: Yes
[2019-01-09 07:48] LABS: Calcium 8.9 mg/dL (8.4-10.2)
--- NOTE | 2019-01-09 07:48 | Anesthesia Consultation ---
Anesthesia Consult and Med Hx Date of service: 01/09/19 - Airway Anesthetic Teeth Evaluation: Poor ROM Head & Neck: Adequate Mental/Hyoid Distance: Adequate Mallampati Class: Class II Intubation Access Assessment: Probably Good - Pre-Operative Health Status ASA Pre-Surgery Classification: ASA4 Proposed Anesthetic Plan: MAC - Pulmonary Hx Smoking: Yes (Former, quit 1998) COPD: Yes Hx Sleep Apnea: Yes (no cpap) - Cardiovascular System Hx Hypertension: Yes Hx Coronary Artery Disease: Yes (CABG (1999), chronic diastolic HF) Hx Valvular Heart Disease: Yes (Aortic valve replacement(2005)) - Central Nervous System Hx Back Pain: Yes Hx Psychiatric Problems: Yes (depression) - Endocrine Hx Renal Disease: Yes (CKD) Hx Non-Insulin Dependent Diabetes: Yes Hx Hypothyroidism: Yes Hx Hyperthyroidism: Yes (thryoid surg 1998) - Other Systems Hx Obesity: Yes - Additional Comments Anesthesia Medical History Comments: Echo 11/2018- Ef 55%, mod bioprosthetic aortic valve stenosis, severe mitral stenosis with trace regurg, Severe pulmonary HTN, mod tricuspid regurg.
[2019-01-09] MEDS ORDERED: NACL 0.9% 500 ML 500 ML IV SCH (08:00)
[2019-01-09] MEDS ORDERED: HURRICAINE ONE 20% TOPICAL SPRAY MM NR (08:00)
[2019-01-09] MEDS ORDERED: CLEOCIN 600 MG/50 mL 600 MG/50 ML BAG IV NR (08:00)
[2019-01-09] MEDS ORDERED: DIPRIVAN 10 MG/ML IV ONE ×2 (08:11)
[2019-01-09] MEDS ORDERED: XYLOCAINE MPF 2% ONE (10:30)
[2019-01-09 11:42] VITALS: BP 116/56
== END 2019-01-09 12:45 | disposition home or self-care (01) ==
LOC: CATHLABREC 06:35 → EDSTATUS 07:30 → CATHLABREC 12:45
PROVIDERS: ATTEND Internal Medicine
DX: I34.0 Nonrheumatic mitral (valve) insufficiency (principal); I70.0 Atherosclerosis of aorta; R00.2 Palpitations; I13.0 Hypertensive heart and chronic kidney disease with heart failure and stage 1 through stage 4 chronic kidney disease, or unspecified chronic kidney disease; I50.32 Chronic diastolic (congestive) heart failure; E11.22 Type 2 diabetes mellitus with diabetic chronic kidney disease; N18.9 Chronic kidney disease, unspecified; I25.10 Atherosclerotic heart disease of native coronary artery without angina pectoris; E78.00 Pure hypercholesterolemia, unspecified; I10 Essential (primary) hypertension; J44.9 Chronic obstructive pulmonary disease, unspecified; G47.30 Sleep apnea, unspecified; K21.9 Gastro-esophageal reflux disease without esophagitis; E66.9 Obesity, unspecified; E03.9 Hypothyroidism, unspecified; Z83.3 Family history of diabetes mellitus; Z95.1 Presence of aortocoronary bypass graft; Z95.4 Presence of other heart-valve replacement; Z86.69 Personal history of other diseases of the nervous system and sense organs; Z79.899 Other long term (current) drug therapy; Z79.82 Long term (current) use of aspirin; Z79.4 Long term (current) use of insulin; Z79.84 Long term (current) use of oral hypoglycemic drugs; Z87.891 Personal history of nicotine dependence; Z98.49 Cataract extraction status, unspecified eye; Z90.49 Acquired absence of other specified parts of digestive tract; Z68.33 Body mass index [BMI] 33.0-33.9, adult; Z98.890 Other specified postprocedural states; Z86.2 Personal history of diseases of the blood and blood-forming organs and certain disorders involving the immune mechanism; Z82.49 Family history of ischemic heart disease and other diseases of the circulatory system
CPT/HCPCS: 36415; 80048; 85025; 85610; 85730; 93312; 93320; 93325; 96365; J2704; J7040

== ENCOUNTER 2019-04-05 09:43 | Outpatient (CLI) | payer MEDICARE ==
--- NOTE | 2019-04-05 13:28 | Mammography Report ---
DIGITAL SCREENING MAMMOGRAM WITH CAD, 04/05/2019 INDICATION: Routine screening mammography. The patient indicated that she had a previous left benign biopsy. TECHNIQUE: Digital bilateral 2D mammography was obtained in the craniocaudal and mediolateral obliq ue projections. This examination was interpreted with the benefit of Computer-Aided Detection analysi s. COMPARISON: 02/15/2017 FINDINGS: Breast Density: The breasts are almost entirely fatty. There is no evidence of dominant mass, suspicious calcifications or architectural distortion in eithe r breast. Left breast is smaller than the right. Minimal left upper benign postsurgical scar. IMPRESSION: No mammographic evidence of malignancy. Follow up recommendation: Routine yearly BI-RADS Category 2: Benign. A "normal" or negative report should not discourage follow up or biopsy of a clinically significant f inding. A written summary of these findings will be mailed to the patient. The patient will be entered into a mammography reporting system which will generate a reminder letter for the patient's next appointmen t at the appropriate interval. The [employer] recommends yearly mammograms starting at age 40 and continuing as l eduar as a woman is in good health. Breast MRI is recommended for women with an approximate 20-25% or greater lifetime risk of breast cancer, including women with a strong family history of breast or ova carolyn cancer or who have been treated for Hodgkin's disease. Signer Name: Clement Plummer MD Signed: 04/05/2019 1:24 PM Workstation Name: [id number]
== END 2019-04-05 09:44 | disposition home or self-care (01) ==
LOC: MAMMO 09:43
PROVIDERS: ATTEND Family Medicine
DX: Z12.31 Encounter for screening mammogram for malignant neoplasm of breast (principal); I11.0 Hypertensive heart disease with heart failure; I50.9 Heart failure, unspecified; E78.00 Pure hypercholesterolemia, unspecified; J44.9 Chronic obstructive pulmonary disease, unspecified; K21.9 Gastro-esophageal reflux disease without esophagitis; E11.9 Type 2 diabetes mellitus without complications
CPT/HCPCS: 77067